=== PATIENT | female | born 1985 | race Caucasian/White ===

== ENCOUNTER 2020-07-09 17:51 | Emergency (ER) | payer OTHER ==
[2020-07-09] MEDS ORDERED: Ketorolac Tromethamine 30 MG/ML VIAL ONE (18:41)
[2020-07-09] MEDS ORDERED: Acetaminophen 500 MG TAB ONE (18:41)
--- NOTE | 2020-07-09 18:46 | RAD ---
4 views of the right knee: 07/09/2020 COMPARISON: None HISTORY: Knee pain, swelling, fall FINDINGS: No fracture or dislocation. No radiopaque foreign body or subcutaneous gas. IMPRESSION: No acute findings.
== END 2020-07-09 19:30 | disposition home or self-care (01) ==
LOC: MADERS 17:51
DX: S83.411A Sprain of medial collateral ligament of right knee, initial encounter (principal); Z79.899 Other long term (current) drug therapy; X50.1XXA Overexertion from prolonged static or awkward postures, initial encounter
CPT/HCPCS: 96372; J1885